=== PATIENT | female | born 1965 | race Caucasian/White ===

== ENCOUNTER 2017-12-11 07:44 | Day surgery (SDC) | payer OTHER ==
[2017-12-11] MEDS ORDERED: ONDANSETRON HCL/PF 4 MG/ 2ML VIAL ONE (09:00)
[2017-12-11] MEDS ORDERED: LACTATED RINGERS 1,000 ML IV.SOLN IV ONE (09:00)
[2017-12-11] MEDS ORDERED: SALINE FLUSH 10 ML DISP.SYRIN IVF ONE (09:00)
[2017-12-11] MEDS ORDERED: LIDOCAINE HCL/PF 2% 100 MG/5 ML VIAL IJ ONE (09:00)
[2017-12-11] MEDS ORDERED: PROPOFOL 200 MG/20 ML VIAL IV ONE (09:00)
--- NOTE | 2017-12-17 08:12 | GI Report ---
REFERRING PHYSICIAN: EDWARD Irvin QUALITY ASSURANCE MONITOR BODY: Mane Johnson MD PROCEDURE MEDICATION: Propofol as per anesthesia. INDICATIONS: This 52-year-old woman is referred for a screening colonoscopy. She has not had a previous evaluation. She denies changes in bowel habits. There is some colon cancer in some uncles but not in first-degree relatives. She has no cardiopulmonary issues. She has had a in the past. PROCEDURE PERFORMED: Colonoscopy. PROCEDURE: An Olympus video colonoscope was advanced to the rectum. Two or three small diverticula were in the sigmoid colon. 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 It took some maneuvering and rotating towards supine position to finally reach the cecum. The appendiceal orifice was normal. Terminal ileum was normal. On slow withdrawal, the cecum, ascending colon, and transverse colon with redundancy, but no obvious intraluminal lesions noted. The descending colon and sigmoid, again, redundancy, no obvious intraluminal lesions were noted. Retroflexion of the rectum was normal. Patient tolerated the procedure well. FINDINGS: 1. A couple of diverticula in the sigmoid colon. 2. Atonic redundant colon. RECOMMENDATIONS: 1. Increase fiber in the diet. Benefiber or MiraLAX if needed. 2. Consider re-looking at her colon in 10 years, sooner if clinically indicated. cc: EDWARD Irvin [facility]
== END 2017-12-11 07:45 ==
LOC: OPSURG 07:44
PROVIDERS: ATTEND Internal Medicine Gastroenterology
DX: Z12.11 Encounter for screening for malignant neoplasm of colon (principal); K57.30 Diverticulosis of large intestine without perforation or abscess without bleeding; K59.8 Other specified functional intestinal disorders
CPT/HCPCS: 45378; J2001; J2405; J2704; J7120; S1016

== ENCOUNTER 2019-05-07 13:38 | Outpatient (CLI) | payer OTHER | END 2019-05-07 13:43 | LOC: LAB 13:38 | PROVIDERS: ATTEND Obstetrics & Gynecology | DX: N92.5 Other specified irregular menstruation (principal) | CPT/HCPCS: 36415; 83001 ==